=== PATIENT | male | born 1980 | race Caucasian/White ===

== ENCOUNTER 2021-06-17 14:51 | Emergency (ER) | payer MEDICAID ==
[~2021-06-17] VITALS: Ht 177.8 cm; Wt 73.0 kg
[~2021-06-17 14:51] MED LIST: INSU100I28 SQ
[2021-06-17 21:20] VITALS: BP 121/75
== END 2021-06-17 21:30 | disposition home or self-care (01) ==
LOC: ER 14:51
DX: F10.129 Alcohol abuse with intoxication, unspecified (principal); E11.9 Type 2 diabetes mellitus without complications; I49.9 Cardiac arrhythmia, unspecified; Y90.9 Presence of alcohol in blood, level not specified
CPT/HCPCS: 36415; 71045; 80320; 82962; 93005; 99285; G0480

== ENCOUNTER 2022-02-23 14:02 | Inpatient (IN) | payer MEDICAID ==
[2022-02-23] VITALS (12 sets, daily range): BP systolic 121–157; BP diastolic 74–98
[~2022-02-23] VITALS: Ht 180.3 cm; Wt 69.1 kg
[2022-02-23] MEDS ORDERED: ONDANSETRON HCL 4MG/2ML INJ IV STA (14:25)
[2022-02-23] MEDS ORDERED: FAMOTIDINE 20MG/2ML VIAL IV STA (14:25)
[2022-02-23] MEDS ORDERED: SODIUM CHLORIDE 0.9% 1,000 ML IV ONE ×3 (14:30→15:15)
[2022-02-23 15:09] LABS: BG BASE EXCESS -22.6 mmol/L (-2.0-2.0); BG CARBOXYHEMOGLOBIN 0.3 % (0.5-1.5); BG DEOXYHEMOGLOBIN 1.7 % (0.0-5.0); BG FRACTION INSPIRED OXYGEN 21; BG HCO3 ACT 4.9 mmol/L (22.0-26.0); BG METHEMOGLOBIN 0.5 % (0.0-1.5); BG OXYGEN SATURATION 98.3 % (92.0-98.5); BG OXYHEMOGLOBIN 97.5 % (94.0-97.0); BG PCO2 16.3 mmHg (35.0-45.0); BG PH 7.098 (7.350-7.450); BG SAMPLE SITE RIGHT BRACHIAL; BG TOTAL HEMOGLOBIN 16.1 g/dL (12.0-18.0); BG VENT MODE RESUS BAG
[2022-02-23] MEDS ORDERED: INSULIN REGULAR (DRIP) 100 UNITS in SODIUM CHLORIDE 0.9% 99 ML IV ONE (15:15)
[2022-02-23] MEDS ORDERED: INSULIN REGULAR 100U/100ML PMX 100 ML IV ONE (15:30)
[2022-02-23 15:39] LABS: HEMATOCRIT. 47.4 % (42.0-52.0); MEAN CORPUSCULAR HEMOGLOBIN 30.2 pg (28.0-32.0); MEAN CORPUSCULAR VOLUME 95.3 fL (80.0-94.0); MEAN PLATELET VOLUME 9.6 fl (7.4-10.4); PLATELET 346 x1000/uL (130-400); RED BLOOD CELL COUNT 4.98 mill/uL (4.7-6.1); RED CELL DISTRIBUTION WIDTH 13.9 % (11.6-14.6)
[2022-02-23 15:46] LABS: CHLORIDE 91 mEq/L (98-107)
[2022-02-23 15:56] LABS: ETHANOL BLOOD < 10 mg/dL
[2022-02-23] MEDS ORDERED: SODIUM BICARBONATE 8.4% 1 MEQ/ML 50ML SYR IV ONE (17:00)
[2022-02-23 18:12] LABS: CLARITY URINE CLEAR (CLEAR); COLOR URINE YELLOW (YELLOW); KETONES URINE 4+ (NEGATIVE); LEUKOCYTE ESTERASE URINE NEGATIVE (NEGATIVE); NITRITE URINE NEGATIVE (NEGATIVE); OCCULT BLOOD URINE TRACE (NEGATIVE); PROTEIN URINE 1+ (NEGATIVE); SPECIFIC GRAVITY URINE 1.024 (1.005-1.030); UROBILINOGEN URINE 0.2 E.U./dL (0.2-1.0)
[2022-02-23] MEDS ORDERED: DEXTROSE 50% WATER 50ML SYRINGE IV PRN ×2 (18:30)
[2022-02-23] MEDS ORDERED: INSULIN REGULAR 100U/100ML PMX 100 ML IV SCH (19:00)
[2022-02-23] MEDS: BLOOD SUGAR DIAGNOSTIC STRIP TEST SCH ×5 (19:00→23:00)
[2022-02-23 19:37] LABS: *AMPHETAMINES SCREEN URINE NEGATIVE (NEGATIVE); *BARBITURATES SCREEN URINE NEGATIVE (NEGATIVE); *BENZODIAZEPINES SCREEN URINE NEGATIVE (NEGATIVE); *COCAINE SCREEN URINE NEGATIVE (NEGATIVE); CANNABINOID URINE SCREEN NEGATIVE (NEGATIVE); METHADONE URINE SCREEN NEGATIVE (NEGATIVE); OPIATES URINE SCREEN NEGATIVE (NEGATIVE); PHENCYCLIDINE URINE SCREEN NEGATIVE (NEGATIVE)
[2022-02-23 19:53] LABS: PLATELET ESTIMATE NORMAL
[2022-02-23 20:23] LABS: CHLORIDE 105 mEq/L (98-107)
[2022-02-23] MEDS: DEXT 5%/0.45% NACL KCL 20MEQ/L 1,000 ML IV SCH (21:47)
[2022-02-24] VITALS (46 sets, daily range): BP systolic 105–154; BP diastolic 60–95
[2022-02-24] MEDS: BLOOD SUGAR DIAGNOSTIC STRIP TEST SCH ×13 (01:00→21:17)
[2022-02-24 01:12] LABS: CHLORIDE 109 mEq/L (98-107)
[2022-02-24 01:34] LABS: PHOSPHORUS 0.9 mg/dL (2.5-4.9)
[2022-02-24] MEDS ORDERED: POTASSIUM PHOS,M-BASIC-D-BASIC 15 MMOL in DEXT 5% WATER 245 ML IV NR (03:00)
[2022-02-24 06:34] LABS: CHLORIDE 108 mEq/L (98-107)
[2022-02-24 06:40] LABS: PHOSPHORUS 1.4 mg/dL (2.5-4.9)
[2022-02-24] MEDS ORDERED: POTASSIUM CHLORIDE 20MEQ TABLET SR PO NR (07:00)
[2022-02-24] MEDS: DEXT 5%/0.45% NACL KCL 20MEQ/L 1,000 ML IV SCH (07:06)
[2022-02-24] MEDS ORDERED: POTASSIUM PHOS,M-BASIC-D-BASIC 10 MMOL in DEXT 5% WATER 246.6667 ML IV NR (08:00)
[2022-02-24] MEDS ORDERED: ONDANSETRON HCL 4MG/2ML INJ IV PRN (09:30)
[2022-02-24] MEDS ORDERED: CLONIDINE 0.1MG TABLET PO PRN (09:30)
[2022-02-24] MEDS ORDERED: ACETAMINOPHEN 325MG TABLET PO PRN (09:30)
[2022-02-24] MEDS ORDERED: HYDROCODONE/ACETAMINOPHEN 5/325MG TABLET PO PRN (09:30)
[2022-02-24] MEDS ORDERED: MAGNESIUM/ALUMINUM HYDROXIDE/SIMETHICONE 30ML UDC PO PRN (09:30)
[2022-02-24] MEDS ORDERED: NALOXONE HCL 0.4MG/ML VIAL IV PRN (10:00)
[2022-02-24 10:09] LABS: CHLORIDE 106 mEq/L (98-107)
[2022-02-24 10:13] LABS: PHOSPHORUS 1.2 mg/dL (2.5-4.9)
[2022-02-24] MEDS: ENOXAPARIN 40MG/0.4ML SYR SUBCUT SCH (10:14)
[2022-02-24] MEDS: PANTOPRAZOLE SODIUM 40 MG/VIAL IV SCH (10:14)
[2022-02-24 10:34] LABS: BG CARBOXYHEMOGLOBIN 0.1 % (0.5-1.5); BG DEOXYHEMOGLOBIN 1.9 % (0.0-5.0); BG FRACTION INSPIRED OXYGEN 21; BG HCO3 ACT 15.8 mmol/L (22.0-26.0); BG METHEMOGLOBIN 0.2 % (0.0-1.5); BG OXYGEN SATURATION 98.1 % (92.0-98.5); BG OXYHEMOGLOBIN 97.8 % (94.0-97.0); BG PCO2 27.9 mmHg (35.0-45.0); BG PO2 106.4 mmHg (75.0-100.0); BG SAMPLE SITE RIGHT RADIAL; BG TOTAL HEMOGLOBIN 13.3 g/dL (12.0-18.0); BG VENT MODE ROOM AIR
[2022-02-24] MEDS ORDERED: BLOOD SUGAR DIAGNOSTIC STRIP TEST SCH (12:50)
[2022-02-24 13:34] LABS: CHLORIDE 108 mEq/L (98-107)
[2022-02-24] MEDS ORDERED: INSULIN GLARGINE 100 UNITS/ML SUBCUT SCH (14:00)
[2022-02-24] MEDS: INSULIN LISPRO 100 UNITS/ML SUBCUT SCH ×2 (17:27→21:25)
[2022-02-24 17:59] LABS: CHLORIDE 110 mEq/L (98-107)
[2022-02-24] MEDS ORDERED: POTASSIUM CHLORIDE INJ 40 MEQ in DEXT 5% WATER 250 ML IV ONE ×2 (19:00→19:15)
[2022-02-24] MEDS: SODIUM CHLORIDE 0.9% 1,000 ML IV SCH (20:04)
[2022-02-24] MEDS: KCL 20MEQ/100ML X 2 FOR TOTAL KCL 40MEQ/200ML IV SCH ×2 (20:04→22:29)
[2022-02-24 21:46] LABS: CHLORIDE 105 mEq/L (98-107)
[2022-02-25] VITALS (45 sets, daily range): BP systolic 95–143; BP diastolic 34–95
[2022-02-25 01:06] LABS: CHLORIDE 105 mEq/L (98-107)
[2022-02-25] MEDS: BLOOD SUGAR DIAGNOSTIC STRIP TEST SCH ×5 (03:27→20:42)
[2022-02-25] MEDS: SODIUM CHLORIDE 0.9% 1,000 ML IV SCH ×2 (05:55→15:46)
[2022-02-25 06:38] LABS: BASOPHILS % 0.2 % (0.0-2.0); EOSINOPHILS % 3.8 % (0.0-5.0); HEMATOCRIT. 36.1 % (42.0-52.0); LYMPHOCYTES % 35.5 % (20.0-50.0); MEAN CORPUSCULAR VOLUME 90.6 fL (80.0-94.0); MONOCYTES % 9.4 % (2.0-8.0); NEUTROPHILS % 51.1 % (40.0-76.0); PLATELET 198 x1000/uL (130-400); RED BLOOD CELL COUNT 3.99 mill/uL (4.7-6.1)
[2022-02-25 06:53] LABS: CHLORIDE 105 mEq/L (98-107)
[2022-02-25 07:09] LABS: PHOSPHORUS 1.6 mg/dL (2.5-4.9); T4 FREE 0.94 ng/dL (0.76-1.46)
[2022-02-25] MEDS ORDERED: INSULIN LISPRO 100 UNITS/ML SUBCUT SCH (08:30)
[2022-02-25] MEDS ORDERED: POTASSIUM PHOS,M-BASIC-D-BASIC 20 MMOL in DEXT 5% WATER 243.3333 ML IV ONE (08:30)
[2022-02-25] MEDS: PANTOPRAZOLE SODIUM 40 MG/VIAL IV SCH (10:13)
[2022-02-25] MEDS: ENOXAPARIN 40MG/0.4ML SYR SUBCUT SCH (10:13)
[2022-02-25] MEDS: INSULIN GLARGINE 100 UNITS/ML SUBCUT SCH ×2 (10:15→17:54)
[2022-02-25] MEDS: INSULIN LISPRO 100 UNITS/ML SUBCUT SCH ×3 (10:16→17:54)
[2022-02-25 10:29] LABS: CHLORIDE 105 mEq/L (98-107)
[2022-02-25] MEDS ORDERED: POTASSIUM PHOS,M-BASIC-D-BASIC 20 MMOL in DEXT 5% WATER 243.3333 ML IV NR (11:00)
[2022-02-25] MEDS: INSULIN LISPRO (LOW DOSE) 100 UNITS/ML SUBCUT SCH ×2 (12:44→17:53)
[2022-02-25 17:15] LABS: CHLORIDE 107 mEq/L (98-107)
[2022-02-25 21:55] LABS: CHLORIDE 110 mEq/L (98-107)
[2022-02-25] MEDS ORDERED: INSULIN GLARGINE 100 UNITS/ML SUBCUT SCH (23:00)
[2022-02-26] VITALS (23 sets, daily range): BP systolic 97–128; BP diastolic 39–86
[2022-02-26] MEDS: SODIUM CHLORIDE 0.9% 1,000 ML IV SCH ×3 (00:36→21:00)
[2022-02-26] MEDS: BLOOD SUGAR DIAGNOSTIC STRIP TEST SCH ×5 (03:22→21:00)
[2022-02-26 06:04] LABS: BASOPHILS % 0.1 % (0.0-2.0); HEMATOCRIT. 34.1 % (42.0-52.0); HEMOGLOBIN. 11.6 g/dL (14.0-18.0); LYMPHOCYTES % 47.2 % (20.0-50.0); MEAN CORPUSCULAR HEMOGLOBIN 30.4 pg (28.0-32.0); MEAN CORPUSCULAR VOLUME 89.4 fL (80.0-94.0); MEAN PLATELET VOLUME 8.7 fl (7.4-10.4); NEUTROPHILS % 41.7 % (40.0-76.0); PLATELET 195 x1000/uL (130-400); RED BLOOD CELL COUNT 3.81 mill/uL (4.7-6.1); RED CELL DISTRIBUTION WIDTH 12.8 % (11.6-14.6)
[2022-02-26 07:11] LABS: *CREATININE RANDOM URINE 138.2 mg/dL (Not Estab.); MICROALBUMIN RANDOM URINE 25.1 ug/mL (Not Estab.)
[2022-02-26] MEDS: INSULIN GLARGINE 100 UNITS/ML SUBCUT SCH ×2 (08:40→16:50)
[2022-02-26] MEDS: INSULIN LISPRO (LOW DOSE) 100 UNITS/ML SUBCUT SCH ×3 (08:41→16:52)
[2022-02-26] MEDS: INSULIN LISPRO 100 UNITS/ML SUBCUT SCH ×3 (08:41→16:53)
[2022-02-26] MEDS: ENOXAPARIN 40MG/0.4ML SYR SUBCUT SCH (08:42)
[2022-02-26] MEDS: PANTOPRAZOLE SODIUM 40 MG/VIAL IV SCH (08:42)
[2022-02-26 08:55] LABS: CHLORIDE 106 mEq/L (98-107)
[2022-02-26 09:09] LABS: ALBUMIN 2.9 g/dL (2.9-4.4); ALPHA-1-GLOBULIN 0.2 g/dL (0.0-0.4); ALPHA-2-GLOBULIN 0.6 g/dL (0.4-1.0); BETA GLOBULIN 1.1 g/dL (0.7-1.3); GAMMA GLOBULINS 1.1 g/dL (0.4-1.8); GLOBULIN TOTAL 2.9 g/dL (2.2-3.9); M-SPIKE Not Observed g/dL (Not Observed); TOTAL PROTEIN SERUM 5.8 g/dL (6.0-8.5)
[2022-02-26] MEDS ORDERED: BLOO-1465 MT (17:01)
[2022-02-26] MEDS ORDERED: LANC-493 TP (17:01)
[2022-02-26] MEDS ORDERED: INSU100I28 SQ (17:01)
[2022-02-26] MEDS ORDERED: POTA10CA42 MT (17:01)
[2022-02-26] MEDS ORDERED: SYRI-219 SQ (17:01)
[2022-02-26] MEDS ORDERED: INSLIS SUBCUT (17:01)
[2022-02-26] MEDS ORDERED: POTASSIUM CHLORIDE 20MEQ/PACKET PO NR (17:15)
[2022-02-26] MEDS ORDERED: POTASSIUM CHLORIDE 20MEQ TABLET SR PO NR (18:00)
[2022-02-26] MEDS ORDERED: DEXTROSE 50% WATER 50ML SYRINGE IV PRN (23:00)
[2022-02-27] VITALS: BP 106/69
[2022-02-27] MEDS: BLOOD SUGAR DIAGNOSTIC STRIP TEST SCH ×2 (03:00→06:12)
[2022-02-27 04:00] VITALS: BP 108/72
[2022-02-27] MEDS: INSULIN LISPRO 100 UNITS/ML SUBCUT SCH (06:11)
[2022-02-27 06:26] LABS: BASOPHILS % 0.1 % (0.0-2.0); EOSINOPHILS % 5.5 % (0.0-5.0); HEMOGLOBIN. 11.8 g/dL (14.0-18.0); LYMPHOCYTES % 53.8 % (20.0-50.0); MEAN CORPUSCULAR HEMOGLOBIN 30.2 pg (28.0-32.0); MEAN CORPUSCULAR VOLUME 89.2 fL (80.0-94.0); MEAN PLATELET VOLUME 8.8 fl (7.4-10.4); MONOCYTES % 7.3 % (2.0-8.0); NEUTROPHILS % 33.3 % (40.0-76.0); PLATELET 198 x1000/uL (130-400); RED BLOOD CELL COUNT 3.92 mill/uL (4.7-6.1); RED CELL DISTRIBUTION WIDTH 12.9 % (11.6-14.6)
[2022-02-27 06:46] LABS: CHLORIDE 108 mEq/L (98-107)
[2022-02-27] MEDS: SODIUM CHLORIDE 0.9% 1,000 ML IV SCH (07:00)
[2022-02-27] MEDS ORDERED: BLOOD SUGAR DIAGNOSTIC STRIP TEST SCH (07:10)
[2022-02-27] MEDS ORDERED: INSULIN LISPRO 100 UNITS/ML SUBCUT SCH (07:40)
[2022-02-27 07:42] VITALS: BP 109/71
[2022-02-27] MEDS ORDERED: POTASSIUM CHLORIDE 10MEQ TABLET SR PO SCH (08:00)
[2022-02-27] MEDS: PANTOPRAZOLE SODIUM 40 MG/VIAL IV SCH (09:05)
[2022-02-27] MEDS: ENOXAPARIN 40MG/0.4ML SYR SUBCUT SCH (09:06)
[2022-02-27] MEDS: INSULIN GLARGINE 100 UNITS/ML SUBCUT SCH (09:07)
== END 2022-02-27 12:59 | disposition home or self-care (01) | DRG 420 ==
LOC: ER 14:02 → EDBEDREQ 14:32 → EDBEDREQTM 16:53 → ENRESERV 17:36 → CVICU 18:46 → 8WST 02-26 07:58
PROVIDERS: ADMIT Internal Medicine; ATTEND Internal Medicine
DX: E11.10 Type 2 diabetes mellitus with ketoacidosis without coma (principal); E83.39 Other disorders of phosphorus metabolism; E83.51 Hypocalcemia; E86.0 Dehydration; E88.09 Other disorders of plasma-protein metabolism, not elsewhere classified; E87.6 Hypokalemia; I10 Essential (primary) hypertension; E87.5 Hyperkalemia; H53.8 Other visual disturbances; R10.9 Unspecified abdominal pain; D64.9 Anemia, unspecified; Z79.4 Long term (current) use of insulin; Z83.3 Family history of diabetes mellitus; Z91.19 Patient's noncompliance with other medical treatment and regimen; Z59.01 Sheltered homelessness
CPT/HCPCS: 36415; 36600; 71045; 74176; 80048; 80053; 80305; 80320; 81003; 82010; 82043; 82375; 82533; 82570; 82805; 82962; 83036; 83519; 83735; 83930; 83935; 84100; 84155; 84165; 84439; 84443; 84484; 84681; 85025; 93005; 93970; 99291; C9113; J1650; J1815; J2405; J3480; J3490; J7030; J7050; J7060; G0480